=== PATIENT | male | born 1985 | race Caucasian/White ===

== ENCOUNTER 2023-10-24 02:32 | Emergency (ER) | payer OTHER, SELFPAY ==
[2023-10-24 02:35] VITALS: BP 154/90
[2023-10-24 03:18] VITALS: BMI 23.7
--- NOTE | 2023-10-24 03:23 | EDRN ---
Pt says he suffered a flash welder's flash around 1700 yesterday. Pt used Visine drops which pt says did not help at all. Pt later developed a headache so he took ibuprofen and went to bed. Pain unbearable and pt unable to open his eyes so he came to
ED for evaluation.
[2023-10-24] MEDS: ADACEL 0.5 ML IM (03:32)
[2023-10-24 04:10] VITALS: BP 116/68
[2023-10-24] MEDS: GENOPTIC 0.3% EYE DROPS 1 DROP OPHTH (04:27)
--- NOTE | 2023-10-24 04:49 | ED.GENMED ---
History of Present Illness
General
Chief Complaint: Visual Problem
Source: patient and family
Exam Limitations: none
Time Seen by Provider: 10/24/23 03:05
Nursing documentation reviewed up to this point in time: agreed with
History of Present Illness
History of Present Illness:
Pleasant 38-year-old male that presents with bilateral eye pain. 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 He states that he had some pain just prior to going to bed. He awakened a few hours
later with severe eye pain and the inability to open his eyes. He states he did have a headache. Unsure of his last tetanus shot. Reports no other symptoms.
Past History
Past History
ED Past Medical History: Psychiatric (Depression, anxiety) and Other (Drug abuse)
ED Past Surgical History: Orthopedic (Right rotator cuff repair, right wrist and hand surgery repair.)
Social History
Tobacco: Smoker
Drug: Marijuana and IVDA (Heroin)
Living: with family
Employment: Employed
Family History
Family History: Other (Noncontributory)
Review of Systems
Review of Systems
Allergies reviewed?: Yes
Other source history: family
All Other Systems: ROS reviewed and negative except as documented in HPI and ROS
Constitutional: Reports no symptoms
EENT: Reports other (Eye pain)
Respiratory: Reports no symptoms
Cardiac: Reports no symptoms
ABD/GI: Reports no symptoms
: Reports no symptoms
Musculoskeletal: Reports no symptoms
Skin: Reports no symptoms
Neurological: Reports headache
Endocrine: Reports no symptoms
Hematologic/Lymphatic: Reports no symptoms
Psychiatric: Reports no symptoms
Phy Exam
General Physical Exam
General Presentation: well appearing and no apparent distress
General Skin: warm and dry
General Habitus: normal
General Mental: alert
General Hydration: appears well hydrated
ENT Exam
ENT Exam: EOMI, pharynx normal, neck supple and normocephalic
Eye Exam
Eye Exam: PERRL and EOMI
Cornea Exam: abrasion: Bilateral (Bilateral punctate corneal abrasions)
Cardiovascular Exam
Cardiovascular Exam: regular rate/rhythm, no edema, no murmur and normal peripheral pulses
Pulmonary Exam
Pulmonary Exam: lungs clear, no respiratory distress, no rales, no crackles, no rhonchi, no stridor, no wheezing and no cough
Gastrointestinal Exam
Gastrointestinal Exam: normal bowel sounds, non tender, soft, no organomegaly, no pulsatile mass and non distended
Neurological Exam
Neurological Exam: alert, oriented x3, no motor deficits and speech normal
Musculoskeletal Exam
Musculoskeletal Exam: full ROM and no edema
Skin Exam
Skin Exam: normal color, warm/dry, no rash and no petechia
Psychiatric Exam
Psychiatric Exam: normal mood/affect
Course
Orders/Labs/Results
Orders:
Orders
10/24/23 03:15
Tetanus/Diphth/Acelpertussis [Adacel] 0.5 ml IM .ONCE ONE
10/24/23 03:30
Tetracaine HCl [Tetracaine 0.5% Ophthalmic Solution] 1 drop .ROUTE .STK-MED ONE
10/24/23 04:05
Fluorescein Sodium [Ful-Kari] 2 mg .ROUTE .STK-MED ONE
10/24/23 04:19
Gentamicin [Genoptic 0.3% Eye Drops] See Dose Instructions OPHTH NOW STA
10/24/23 04:38
Ketorolac [Acular 0.5% Eye Drops] See Dose Instructions OPHTH NOW STA
10/24/23 04:45
Gentamicin [Genoptic 0.3% Eye Drops] See Dose Instructions OPHTH NOW STA
10/24/23 08:00
Ketorolac [Acular 0.5% Eye Drops] See Dose Instructions OPHTH QID
Ketorolac [Acular 0.5% Eye Drops] See Dose Instructions OPHTH QID
Vital Signs
Initial and Last Documented VS:
Initial Vital Signs
Temp Pulse Resp BP Pulse Ox
98.1 F 84 24 154/90 100
10/24/23 02:35 10/24/23 02:35 10/24/23 02:35 10/24/23 02:35 10/24/23 02:35
Last Documented Vital Signs
Temp Pulse Resp BP Pulse Ox
98.1 F 70 14 116/68 99
10/24/23 02:35 10/24/23 04:10 10/24/23 04:10 10/24/23 04:10 10/24/23 04:10
*Critical Care Note
Total Time (30-74mins, 75-104mins- exclusive of procedures): Not Applicable
Update Note
Update Note:
Patient does not wear contact lenses. Did feel relief with tetracaine. Eye exam performed. No evidence of foreign body. There are bilateral punctate corneal abrasions present.
ED Attending Note
-
Portions of this chart may have been created with voice recognition software.� Occasional wrong word or��sound alike� substitutions may have occurred due to the inherent limitations of voice recognition software.
Discharge Plan
Departure
Patient Disposition: Home (Routine Discharge)
Date of Disposition: 10/24/23
Time of Disposition: 05:06
Patient with high blood pressure during this ER visit?: No
Condition: Good
Discharge Problem:
Abrasion, corneal
Instructions: Headache, Adult (DC), Corneal Abrasion ED
Prescriptions:
No Action
cyclobenzaprine [Flexeril] 10 mg Tablet
10 mg PO TID
omeprazole 40 mg Capsule,Delayed Release(Dr/Ec)
40 mg PO DAILY
Sublocade 100 mg/0.5 mL Solution, Extended Rel Syringe
100 mg SC QMONTH
Referrals:
Jose M Victor MD [Family Provider] -
Jaylon Byers MD [Active] - Next open appointment
Activity Restrictions/Additional Instructions:
Please take the gentamicin eyedrops as directed 1 drop in each eye every 4 hours while awake. Tylenol for the pain. Toradol eyedrops for breakthrough pain. The Toradol eyedrops can be used 1 drop in each eye every 6 hours.
It was a pleasure meeting you and taking part in your care. We hope for your continued healing and wellness.
Please read discharge instructions in their entirety. However, they are for general education and may not describe your exact diagnosis at discharge. Information on your ER visit and medical conditions were discussed with you along with appropriate
follow up information...
If indicated, please take your medications as instructed and indicated on discharge paperwork.
Please schedule a follow up appointment as directed. Call to schedule an appointment
Please return to the emergency department with ANY change in, persisting, or worsening of symptoms. If any of your symptoms do not improve, or persist, or become more severe within 6-12 hours, please return to the emergency department for further
care.
Please return to the emergency department if you develop a headache, neck pain/stiffness, fever greater than 100.4F, chest pain, shortness of breath, persistent nausea, vomiting, slurred speech, difficulty walking, numbness/tingling, weakness, signs
of infection or any other symptoms that are worrisome to you.
If you have any questions or concerns please do not hesitate to call the Hospital at or E-mail me directly at [email or web address]
Interventions
Interventions:
*Risk Screen - Suicide Last Done: 10/24/23 02:35
*General Assessment Last Done: 10/24/23 03:18
*Neglect/Abuse Screening Last Done: 10/24/23 02:35
*ED COVID-19 Vaccine History Last Done: 10/24/23 03:18
*Nursing Disposition Last Done: 10/24/23 05:17
ED- Neurological Assessment Last Done: 10/24/23 03:18
ED-EENT Assessment Last Done: 10/24/23 03:18
Discharge Date and Time
Discharge Date/Time: 10/24/23 05:17
Print Language: SPANISH
[2023-10-24] MEDS: ACULAR 0.5% EYE DROPS 1 DROP OPHTH (04:58)
== END 2023-10-24 05:17 | disposition home or self-care (01) ==
LOC: EMR 02:32
PROVIDERS: EMERGENCY PHYSICIAN Student in an Organized Health Care Education/Training Program; FAMILY PHYSICIAN Internal Medicine
DX: S05.02XA Injury of conjunctiva and corneal abrasion without foreign body, left eye, initial encounter (principal); S05.01XA Injury of conjunctiva and corneal abrasion without foreign body, right eye, initial encounter; R51.9 Headache, unspecified; X58.XXXA Exposure to other specified factors, initial encounter; Y93.89 Activity, other specified; Z23 Encounter for immunization; F32.A Depression, unspecified; F41.9 Anxiety disorder, unspecified; F17.210 Nicotine dependence, cigarettes, uncomplicated; Z91.030 Bee allergy status
CPT/HCPCS: 99283; 90471; 90715